=== PATIENT | female | born 1975 | race Caucasian/White ===

== ENCOUNTER 2018-12-23 14:06 | Emergency (ER) | payer SELFPAY ==
--- NOTE | 2018-12-23 14:36 | EDM.PDOC ---
ED HPI GENERAL MEDICAL PROBLEM - General Chief Complaint: General Stated Complaint: PAIN IN LEFT FOOT AND BACK OF HEAD FROM FALL Time Seen by Provider: 12/23/18 14:32 - History of Present Illness INITIAL COMMENTS - FREE TEXT/NARRATIVE: HISTORY AND PHYSICAL: History of present illness: Patient 43-year-old white female presents with substernal status post fall which injured her left ankle she states she also had her abdomen was lost consciousness no neck pain no nausea vomiting dizziness Review of systems: As per history of present illness and below otherwise all systems reviewed and negative. Past medical history: As per history of present illness and as reviewed below otherwise noncontributory. Surgical history: As per history of present illness and as reviewed below otherwise noncontributory. Social history: No reported history of drug or alcohol abuse. Family history: As per history of present illness and as reviewed below otherwise noncontributory. Physical exam: HEENT: Atraumatic, normocephalic, pupils reactive, negative for conjunctival pallor or scleral icterus, mucous membranes moist, throat clear, neck supple, nontender, trachea midline. Lungs: Clear to auscultation, breath sounds equal bilaterally, chest nontender. Heart: S1S2, regular, negative for clicks, rubs, or JVD. Abdomen: Soft, nondistended, nontender. Negative for masses or hepatosplenomegaly. Negative for costovertebral tenderness. Pelvis: Stable nontender. Genitourinary: Deferred. Rectal: Deferred. Extremities: Left ankle is moderate swelling with tenderness greatest in the region of the lateral malleolus no gross deformity CMS neurovascular exam is unremarkable there's no proximal fibula tenderness Neuro: Awake, alert, oriented. Cranial nerves II through XII unremarkable. Cerebellum unremarkable. Motor and sensory unremarkable throughout. Exam nonfocal. Diagnostics: X-ray left ankle Therapeutics: To be determined Impression: #1 left ankle injury #2 minor head injury Definitive disposition and diagnosis as appropriate pending reevaluation and review of above. - Related Data Allergies Allergy/AdvReac Type Severity Reaction Status Date / Time aspirin Allergy Hives Verified 12/23/18 14:35 gabapentin Allergy Hives Verified 12/23/18 14:35 Penicillins Allergy Hives Verified 12/23/18 14:35 Sulfa (Sulfonamide Allergy Hives Verified 12/23/18 14:35 Antibiotics) Home Meds: Home Meds Cyclobenzaprine [Flexeril] 10 mg PO ASDIRECTED 12/23/18 [History] Omeprazole Magnesium [Prilosec Otc] 20 mg PO DAILY 12/23/18 [History] Propranolol [Inderal] 40 mg PO DAILY 12/23/18 [History] Ranitidine HCl [Zantac] 150 mg PO DAILY 12/23/18 [History] ED ROS GENERAL - Review of Systems Review Of Systems: ROS reveals no pertinent complaints other than HPI. ED EXAM, GENERAL - Physical Exam Exam: See Below (See dictation) Course - Vital Signs Last Recorded V/S: Last Vital Signs Temp 36.7 C 12/23/18 14:27 Pulse 76 12/23/18 14:27 Resp 18 12/23/18 14:27 BP 146/90 H 12/23/18 14:27 Pulse Ox 96 12/23/18 14:27 Departure - Departure Time of Disposition: 15:20 Disposition: Home, Self-Care 01 Condition: Good Clinical Impression: Ankle injury, Head injury - Discharge Information Referrals: PCP,None [Primary Care Provider] - Forms: ED Department Discharge Additional Instructions: The following information is given to patients seen in the emergency department who are being discharged to home. This information is to outline your options for follow-up care. We provide all patients seen in our emergency department with a follow-up referral. The need for follow-up, as well as the timing and circumstances, are variable depending upon the specifics of your emergency department visit. If you don't have a primary care physician on staff, we will provide you with a referral. We always advise you to contact your personal physician following an emergency department visit to inform them of the circumstance of the visit and for follow-up with them and/or the need for any referrals to a consulting specialist. The emergency department will also refer you to a specialist when appropriate. This referral assures that you have the opportunity for followup care with a specialist. All of these measure are taken in an effort to provide you with optimal care, which includes your followup. Under all circumstances we always encourage you to contact your private physician who remains a resource for coordinating your care. When calling for followup care, please make the office aware that this follow-up is from your recent emergency room visit. If for any reason you are refused follow-up, please contact the [facility] emergency department at and asked to speak to the emergency department charge nurse. Motrin/Tylenol as directed Cedric wrap crutches as directed follow-up primary medical doctor as needed as discussed return as needed as discussed
--- NOTE | 2018-12-23 15:16 | CR ---
EXAMINATION: Left ankle HISTORY: Pain COMPARISON: None TECHNIQUE: 3 views FINDINGS: There is no acute osseous abnormality, dislocation, or fracture. Bone mineralization and joint spaces are preserved. Ankle mortise and talar dome are intact. Small plantar and Achilles calcaneal enthesophytes. IMPRESSION: No acute osseous abnormality identified.
== END 2018-12-23 15:51 | disposition home or self-care (01) ==
LOC: MW.ED 14:06
DX: S09.90XA Unspecified injury of head, initial encounter (principal); S99.912A Unspecified injury of left ankle, initial encounter; Z88.6 Allergy status to analgesic agent; Z88.0 Allergy status to penicillin; Z88.8 Allergy status to other drugs, medicaments and biological substances; Z88.2 Allergy status to sulfonamides; Z79.899 Other long term (current) drug therapy; W10.9XXA Fall (on) (from) unspecified stairs and steps, initial encounter
CPT/HCPCS: 73610-26-LT; 73610-LT; 99283

== ENCOUNTER 2019-02-23 18:55 | Emergency (ER) | payer MEDICAID ==
[2019-02-23] MEDS ORDERED: Ondansetron 4 MG/2 ML SDV IVPUSH ONE (19:28)
[2019-02-23] MEDS ORDERED: Ketorolac 30 MG/ML SDV IVPUSH ONE (19:28)
[2019-02-23] MEDS ORDERED: Sodium Chloride 0.9% 1,000 ML IV ONE (19:28)
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
[2019-02-23 21:08] LABS: CHLORIDE,CL 104 mmol/L (98-107); SODIUM,NA 140 mmol/L (136-145)
[2019-02-23] MEDS ORDERED: Iopamidol 755 MG/ML 500 ML Multipack Bottle IVPUSH ONE (21:32)
--- NOTE | 2019-02-23 22:43 | CT ---
INDICATION: Abdominal pain, history of multiple hernia surgeries. TECHNIQUE: CT abdomen and pelvis acquired with 100 cc Isovue 370 intravenous contrast. COMPARISON: None. FINDINGS: Lower chest: Unremarkable. Liver: Unremarkable. Normal in size and attenuation. No masses. Gallbladder and bile ducts: Status post cholecystectomy. Pancreas: Unremarkable. No mass or inflammation. Spleen: Unremarkable. Normal in size. No masses. Adrenal glands: Unremarkable. No nodules. Kidneys: Unremarkable. No masses, stones, or hydronephrosis. GI tract: The patient is status post gastric surgery with a suture line along the greater curvature. There are no dilated loops of large or small intestine. A ventral hernia mesh is present at the supraumbilical region with wide rectus diastasis. Ventral hernia with bowel extending to the mouth of the hernia although without evidence of obstruction or bowel wall thickening (204, 82). Appendix is not seen. Vasculature: Unremarkable. Pelvis: Status post hysterectomy. No adnexal masses. Bones: Degenerative disc disease L4-L5 and L5-S1 with underlying spondylolysis at L5 and grade 1 anterolisthesis at L5-S1. IMPRESSION: 1. No dilated bowel or localized inflammation. 2. Status post supraumbilical hernia mesh with wide rectus diastasis and bowel extending to the mouth of a separate hernia just to the left of the mesh although without evidence of obstruction or bowel wall thickening. 3. Status post gastric surgery and cholecystectomy. Please note that all CT scans at this facility use dose modulation, iterative reconstruction, and/or weight-based dosing when appropriate to reduce radiation dose to as low as reasonably achievable. Dictated by Gee Wray MD @ Feb 23 2019 10:28PM Signed by Dr. Gee Wray @ Feb 23 2019 10:41PM
== END 2019-02-23 23:40 | disposition home or self-care (01) ==
LOC: MW.ED 18:55
DX: K46.9 Unspecified abdominal hernia without obstruction or gangrene (principal); I10 Essential (primary) hypertension; Z88.6 Allergy status to analgesic agent; Z88.0 Allergy status to penicillin; Z88.2 Allergy status to sulfonamides; Z88.8 Allergy status to other drugs, medicaments and biological substances; Z79.899 Other long term (current) drug therapy
CPT/HCPCS: 74177; 80053; 81003; 81025; 83690; 84484; 85025; 96361; 96374; 96375; 99285; J1885; J2405; J7040; Q9967; 99284